=== PATIENT | male | born 1980 | race Caucasian/White ===

== ENCOUNTER 2021-04-26 10:29 | Emergency (ER) | payer MEDICAID ==
[~2021-04-26] VITALS: Ht 177.8 cm; Wt 73.0 kg
[2021-04-26] MEDS ORDERED: SODIUM CHLORIDE 0.9% 1,000 ML IV ONE (11:00)
[2021-04-26] MEDS ORDERED: LORAZEPAM 2MG/ML CPJ IV ONE (11:00)
[2021-04-26] MEDS ORDERED: NALOXONE HCL 0.4 MG/ML 1ML VIAL IV ONE ×2 (11:30→12:15)
[2021-04-26 11:43] LABS: BASOPHILS % 0.3 % (0.0-2.0); EOSINOPHILS % 0.5 % (0.0-5.0); HEMATOCRIT. 35.6 % (42.0-52.0); HEMOGLOBIN. 11.9 g/dL (14.0-18.0); MEAN CORPUSCULAR HEMOGLOBIN 29.9 pg (28.0-32.0); MEAN CORPUSCULAR VOLUME 89.5 fL (80.0-94.0); MEAN PLATELET VOLUME 7.5 fl (7.4-10.4); MONOCYTES % 8.9 % (2.0-8.0); NEUTROPHILS % 81.3 % (40.0-76.0); PLATELET 264 x1000/uL (130-400); RED BLOOD CELL COUNT 3.97 mill/uL (4.7-6.1); RED CELL DISTRIBUTION WIDTH 13.2 % (11.6-14.6)
[2021-04-26 11:44] LABS: CHLORIDE 107 mEq/L (98-107)
[2021-04-26 11:49] LABS: ETHANOL BLOOD < 10 mg/dL
[2021-04-26 11:53] LABS: CREATINE KINASE 432 IU/L (39-308)
[2021-04-26 11:54] LABS: CLARITY URINE CLEAR (CLEAR); COLOR URINE DARK YELLOW (YELLOW); KETONES URINE TRACE (NEGATIVE); LEUKOCYTE ESTERASE URINE NEGATIVE (NEGATIVE); NITRITE URINE NEGATIVE (NEGATIVE); OCCULT BLOOD URINE NEGATIVE (NEGATIVE); PH URINE 5.5 (4.5-8.0); PROTEIN URINE 1+ (NEGATIVE); SPECIFIC GRAVITY URINE 1.033 (1.005-1.030)
[2021-04-26 12:58] LABS: *AMPHETAMINES SCREEN URINE PRESUMTIVE POSITIVE (NEGATIVE)
[2021-04-26 13:00] LABS: *BARBITURATES SCREEN URINE NEGATIVE (NEGATIVE); CANNABINOID URINE SCREEN PRESUMTIVE POSITIVE (NEGATIVE)
[2021-04-26 13:01] LABS: *BENZODIAZEPINES SCREEN URINE NEGATIVE (NEGATIVE)
[2021-04-26 13:03] LABS: PHENCYCLIDINE URINE SCREEN NEGATIVE (NEGATIVE)
[2021-04-26 13:04] LABS: OPIATES URINE SCREEN PRESUMTIVE POSITIVE (NEGATIVE)
[2021-04-26 13:05] LABS: *COCAINE SCREEN URINE NEGATIVE (NEGATIVE)
[2021-04-26 13:08] LABS: METHADONE URINE SCREEN NEGATIVE (NEGATIVE)
[2021-04-26] MEDS ORDERED: NALO4SPR BOTHNSTRLS (20:30)
[2021-04-26 22:03] VITALS: BP 101/69
[2021-04-27] MEDS ORDERED: CLIN300C12 MT (05:33)
== END 2021-04-26 22:07 | disposition home or self-care (01) ==
LOC: ER 10:40
DX: F15.10 Other stimulant abuse, uncomplicated (principal); F16.10 Hallucinogen abuse, uncomplicated; F12.10 Cannabis abuse, uncomplicated; F11.10 Opioid abuse, uncomplicated; R61 Generalized hyperhidrosis; R41.82 Altered mental status, unspecified
CPT/HCPCS: 36415; 71045; 80053; 80305; 80307; 80320; 80329; 81003; 82140; 82550; 82962; 83605; 84443; 84484; 85025; 93005; 96361; 96374; 96375; 99285; J2060; J2310; J7030; G0480

== ENCOUNTER 2021-04-27 05:11 | Emergency (ER) | payer MEDICAID ==
[~2021-04-27] VITALS: Ht 177.8 cm; Wt 79.0 kg
[~2021-04-27 05:11] MED LIST: NALO4SPR BOTHNSTRLS
[2021-04-27 05:12] VITALS: BP 100/62
[2021-04-27] MEDS ORDERED: CLIN300C12 MT (05:33)
== END 2021-04-27 05:45 | disposition home or self-care (01) ==
LOC: ER 05:11
DX: L03.116 Cellulitis of left lower limb (principal); F99 Mental disorder, not otherwise specified; F11.10 Opioid abuse, uncomplicated
CPT/HCPCS: 99283